=== PATIENT | female | born 1980 | race Caucasian/White ===

== ENCOUNTER → 2024-05-06 14:49 | Outpatient (REF) | payer BC, SELFPAY | LOC: WDC 14:49 | PROVIDERS: ATTENDING PHYSICIAN Specialist; FAMILY PHYSICIAN Nurse Practitioner Family | DX: Z12.31 Encounter for screening mammogram for malignant neoplasm of breast (principal) | CPT/HCPCS: 77063; 77067 ==

== ENCOUNTER → 2024-07-17 17:39 | Outpatient (REF) | payer BC, SELFPAY | LOC: RAD 17:39 | PROVIDERS: ATTENDING PHYSICIAN Nurse Practitioner Women's Health | DX: N92.0 Excessive and frequent menstruation with regular cycle (principal) | CPT/HCPCS: 76830; 76856 ==

== ENCOUNTER → 2024-08-18 19:37 | Outpatient (REF) | payer BC, SELFPAY | LOC: MRI 19:37 | PROVIDERS: ATTENDING PHYSICIAN Specialist; REFERRING PHYSICIAN Nurse Practitioner Women's Health | DX: N83.292 Other ovarian cyst, left side (principal) | CPT/HCPCS: 72197; A9575 ==

== ENCOUNTER → 2025-05-07 17:22 | Outpatient (REF) | payer BC, SELFPAY | LOC: WDC 17:22 | PROVIDERS: ATTENDING PHYSICIAN Nurse Practitioner Women's Health; FAMILY PHYSICIAN Nurse Practitioner Family | DX: Z12.31 Encounter for screening mammogram for malignant neoplasm of breast (principal) | CPT/HCPCS: 77063; 77067 ==

== ENCOUNTER → 2025-06-22 18:59 | Outpatient (REF) | payer BC, SELFPAY | LOC: MRI 3T 18:59 | PROVIDERS: ATTENDING PHYSICIAN Specialist; FAMILY PHYSICIAN Nurse Practitioner Family | DX: N83.292 Other ovarian cyst, left side (principal); N80.122 Deep endometriosis of left ovary | CPT/HCPCS: 72197; A9575 ==